=== PATIENT | female | born 2005 | race African-American/Black ===

== ENCOUNTER 2024-04-24 13:52 | Emergency (ER) | payer OTHER ==
[~2024-04-24] VITALS: Ht 152.4 cm; Wt 72.7 kg
[2024-04-24 13:53] VITALS: BP 122/78; TEMP 97; O2SAT 100
[2024-04-24] MEDS ORDERED: CLIN1GEL3 TOP (14:38)
== END 2024-04-24 14:52 | disposition home or self-care (01) ==
LOC: M ED 13:52
DX: L70.9 Acne, unspecified (principal); Z79.2 Long term (current) use of antibiotics

== ENCOUNTER → 2024-08-04 | Outpatient (CLI) | payer OTHER ==
[~2024-08-04] MED LIST: CLIN1GEL3 TOP
== END ==
LOC: M WHC 06:49
PROVIDERS: ATTEND Physician Assistant
DX: N64.4 Mastodynia (principal)

== ENCOUNTER 2024-10-19 10:46 | Emergency (ER) | payer OTHER ==
[~2024-10-19] VITALS: Ht 157.5 cm; Wt 86.0 kg
[2024-10-19] MEDS ORDERED: PRENMIS3 PO (10:57)
[2024-10-19 12:01] LABS: BASO % 0.4 % (0.0-1.0); EOS # 0.1 10^3/uL (0.0-0.5); EOS % 0.6 % (0.0-3.0); HEMATOCRIT 38.6 % (36.0-47.0); HEMOGLOBIN 12.7 g/dl (12.0-15.5); LYMPH % 25.6 % (24.0-44.0); MEAN CORPUSCULAR HEMOGLOBIN 29.7 pg (27.0-33.0); MEAN CORPUSCULAR HGB CONC 32.9 g/dl (32.0-36.5); MEAN CORPUSCULAR VOLUME 90.2 fl (80.0-96.0); MONO # 0.5 10^3/uL (0.0-0.8); NEUTROPHILS # 5.2 10^3/uL (1.5-8.5); NEUTROPHILS % 66.4 % (36.0-66.0); PLATELET COUNT, AUTOMATED 310 10^3/uL (150-450); RED BLOOD COUNT 4.28 10^6/uL (4.00-5.40); WHITE BLOOD COUNT 7.9 10^3/uL (4.0-10.0)
[2024-10-19 12:23] LABS: ALBUMIN 3.5 G/DL (3.2-5.2); ALKALINE PHOSPHATASE 70 U/L (35-104); ALT/SGPT 13 U/L (7.0-40); AST/SGOT 9 U/L (<34); BILIRUBIN,DIRECT 0.1 MG/DL (<0.4); BILIRUBIN,TOTAL 0.5 MG/DL (0.3-1.2); BLOOD UREA NITROGEN 10 MG/DL (9-23); CALCIUM LEVEL 9.3 MG/DL (8.5-10.1); CARBON DIOXIDE LEVEL 26 MMOL/L (20-31); CHLORIDE LEVEL 106 MMOL/L (98-107); CREATININE FOR GFR 0.61 MG/DL (0.55-1.30); GLOMERULAR FILTRATION RATE > 60.0 (>60); GLUCOSE, FASTING 111 MG/DL (60-100); SODIUM LEVEL 137 MMOL/L (136-145)
[2024-10-19 12:41] LABS: HCG, SERUM QUANTITATIVE 53959.7 MIU/ML (<4.2)
[2024-10-19] MEDS: ONDANSETRON 4MG ORAL DISINTEGRATING TAB PO ONE (13:40)
[2024-10-19] MEDS ORDERED: ONDA-282 PO (15:07)
[2024-10-19 15:32] VITALS: BP 126/63; TEMP 98.3; O2SAT 99
== END 2024-10-19 15:31 | disposition home or self-care (01) ==
LOC: M ED 10:46
DX: O21.9 Vomiting of pregnancy, unspecified (principal); O26.891 Other specified pregnancy related conditions, first trimester; Z3A.01 Less than 8 weeks gestation of pregnancy; Z79.810 Long term (current) use of selective estrogen receptor modulators (SERMs); Z79.899 Other long term (current) drug therapy

== ENCOUNTER 2024-12-27 11:05 | Outpatient (CLI) | payer OTHER ==
[~2024-12-27] VITALS: Ht 157.5 cm; Wt 92.9 kg
[2024-12-27] VITALS (7 sets, daily range): BP systolic 120–154; BP diastolic 60–119
[~2024-12-27 11:05] MED LIST changes: +ONDA-282 PO; +PRENMIS3 PO
[2024-12-27] MEDS ORDERED: ASPI81CH33 PO (11:32)
[2024-12-27] MEDS ORDERED: HOME MED LIST COMPLETE! XX SCH (11:35)
[2024-12-27 12:28] LABS: HEMATOCRIT 34.8 % (36.0-47.0); HEMOGLOBIN 11.3 g/dl (12.0-15.5); MEAN CORPUSCULAR HEMOGLOBIN 29.5 pg (27.0-33.0); MEAN CORPUSCULAR HGB CONC 32.5 g/dl (32.0-36.5); MEAN CORPUSCULAR VOLUME 90.9 fl (80.0-96.0); PLATELET COUNT, AUTOMATED 295 10^3/uL (150-450); RED BLOOD COUNT 3.83 10^6/uL (4.00-5.40); WHITE BLOOD COUNT 9.2 10^3/uL (4.0-10.0)
[2024-12-27 12:47] LABS: APPEARANCE, URINE CLEAR (CLEAR); BACTERIA, URINE AUTO NEGATIVE (NEGATIVE); BILIRUBIN, URINE AUTO NEGATIVE (NEGATIVE); BLOOD, URINE BLOOD NEGATIVE (NEGATIVE); COLOR, URINE YELLOW (YELLOW); GLUCOSE, URINE (UA) AUTO NEGATIVE (NEGATIVE); KETONE, URINE AUTO NEGATIVE (NEGATIVE); LEUKOCYTE ESTERASE, URINE AUTO NEGATIVE (NEGATIVE); MUCUS, URINE SMALL (NEGATIVE); NITRITE, URINE AUTO NEGATIVE (NEGATIVE); PROTEIN, URINE AUTO NEGATIVE (NEGATIVE); RBC, URINE AUTO 0 /HPF (0-3); SPECIFIC GRAVITY URINE AUTO 1.016 (1.002-1.035); SQUAMOUS EPITHELIAL CELL UR AU 1 /HPF (0-6); UROBILINOGEN, URINE AUTO 0.2 mg/dL (0.0-2.0); WBC, URINE AUTO 0 /HPF (0-3)
[2024-12-27 12:51] LABS: TOTAL PROTEIN,RANDOM URINE 7.4 MG/DL (0.0-14.0)
[2024-12-27 12:55] LABS: CREATININE,RANDOM URINE 76.9 MG/DL
[2024-12-27 12:56] LABS: LDH LACTATE DEHYDROGENASE 190 U/L (120-246)
[2024-12-27 12:57] LABS: ALT/SGPT 31 U/L (7.0-40); AST/SGOT 22 U/L (<34); BILIRUBIN,TOTAL 0.3 MG/DL (0.3-1.2); CREATININE FOR GFR 0.55 MG/DL (0.55-1.30); GLOMERULAR FILTRATION RATE > 60.0 (>60)
[2024-12-27 13:06] LABS: URIC ACID 2.7 MG/DL (3.1-7.8)
[2024-12-27] MEDS ORDERED: LABE100T6 PO (13:17)
== END 2024-12-27 13:25 | disposition home or self-care (01) ==
LOC: M LDO 11:05
PROVIDERS: ATTEND Advanced Practice Midwife
DX: O26.892 Other specified pregnancy related conditions, second trimester (principal); R10.2 Pelvic and perineal pain; R03.0 Elevated blood-pressure reading, without diagnosis of hypertension; Z3A.16 16 weeks gestation of pregnancy
CPT/HCPCS: 36415; 81001; 82247; 82570; 83615; 84156; 84450; 84460; 84550; 85027; 87086; G0463

== ENCOUNTER 2025-02-08 23:45 | Outpatient (CLI) | payer OTHER ==
[~2025-02-08] VITALS: Ht 157.5 cm; Wt 94.4 kg
[~2025-02-08 23:45] MED LIST changes: +ASPI81CH33 PO; +LABE100T6 PO
[2025-02-09 00:09] VITALS: BP 129/58
[2025-02-09] MEDS ORDERED: FLON1SPR NARES (06:07)
== END 2025-02-09 00:20 | disposition home or self-care (01) ==
LOC: M LDO 23:45
PROVIDERS: ATTEND Obstetrics & Gynecology
DX: O26.892 Other specified pregnancy related conditions, second trimester (principal); R07.9 Chest pain, unspecified; R09.81 Nasal congestion; Z3A.20 20 weeks gestation of pregnancy

== ENCOUNTER 2025-02-09 00:28 | Emergency (ER) | payer OTHER ==
[~2025-02-09] VITALS: Ht 157.5 cm; Wt 94.2 kg
[2025-02-09 01:05] LABS: BASO % 0.3 % (0.0-1.0); EOS # 0.1 10^3/uL (0.0-0.5); EOS % 1.1 % (0.0-3.0); HEMATOCRIT 32.8 % (36.0-47.0); HEMOGLOBIN 10.9 g/dl (12.0-15.5); LYMPH # 2.3 10^3/uL (1.5-5.0); LYMPH % 17.9 % (24.0-44.0); MEAN CORPUSCULAR HEMOGLOBIN 29.9 pg (27.0-33.0); MEAN CORPUSCULAR HGB CONC 33.2 g/dl (32.0-36.5); MEAN CORPUSCULAR VOLUME 90.1 fl (80.0-96.0); MONO # 0.8 10^3/uL (0.0-0.8); MONO % 6.1 % (2.0-8.0); NEUTROPHILS # 9.2 10^3/uL (1.5-8.5); NEUTROPHILS % 70.5 % (36.0-66.0); PLATELET COUNT, AUTOMATED 303 10^3/uL (150-450); RED BLOOD COUNT 3.64 10^6/uL (4.00-5.40); WHITE BLOOD COUNT 13.1 10^3/uL (4.0-10.0)
[2025-02-09 01:26] LABS: CK-MB VALUE MASS < 1.0 NG/ML (<3.6)
[2025-02-09 01:27] LABS: CPK CREATINE PHOSPHOKINASE 83 U/L (34-145)
[2025-02-09 01:28] LABS: BLOOD UREA NITROGEN < 5 MG/DL (9-23); CALCIUM LEVEL 8.9 MG/DL (8.5-10.1); CARBON DIOXIDE LEVEL 21 MMOL/L (20-31); CHLORIDE LEVEL 105 MMOL/L (98-107); CREATININE FOR GFR 0.52 MG/DL (0.55-1.30); GLOMERULAR FILTRATION RATE > 60.0 (>60); GLUCOSE, FASTING 86 MG/DL (60-100); POTASSIUM SERUM 4.1 MMOL/L (3.5-5.1); SODIUM LEVEL 137 MMOL/L (136-145)
[2025-02-09 06:00] VITALS: BP 113/61; TEMP 98.4; O2SAT 100
[2025-02-09] MEDS ORDERED: FLON1SPR NARES (06:07)
== END 2025-02-09 06:25 | disposition home or self-care (01) ==
LOC: M ED 00:28
DX: R09.81 Nasal congestion (principal); B34.2 Coronavirus infection, unspecified; R00.0 Tachycardia, unspecified; I10 Essential (primary) hypertension; Z79.1 Long term (current) use of non-steroidal anti-inflammatories (NSAID); Z79.810 Long term (current) use of selective estrogen receptor modulators (SERMs); Z79.899 Other long term (current) drug therapy

== ENCOUNTER 2025-02-21 18:57 | Emergency (ER) | payer OTHER ==
[~2025-02-21] VITALS: Ht 157.5 cm; Wt 96.3 kg
[~2025-02-21 18:57] MED LIST changes: +FLON1SPR NARES
[2025-02-21 21:12] VITALS: BP 128/78; TEMP 98; O2SAT 100
== END 2025-02-21 23:15 | disposition left against medical advice (07) ==
LOC: M ED 18:57
DX: Z53.21 Procedure and treatment not carried out due to patient leaving prior to being seen by health care provider (principal)

== ENCOUNTER 2025-02-22 14:10 | Emergency (ER) | payer OTHER ==
[~2025-02-22] VITALS: Ht 157.5 cm; Wt 95.5 kg
[2025-02-22 16:38] VITALS: BP 142/82; TEMP 97.5; O2SAT 100
[2025-02-22] MEDS: DERMABOND TOPICAL SKIN ADHESIVE TOP ONE (18:35)
== END 2025-02-22 19:12 | disposition home or self-care (01) ==
LOC: M ED 14:10
DX: S61.102A Unspecified open wound of left thumb with damage to nail, initial encounter (principal); Y92.9 Unspecified place or not applicable; Y93.9 Activity, unspecified; Y99.9 Unspecified external cause status; W23.0XXA Caught, crushed, jammed, or pinched between moving objects, initial encounter; Z79.1 Long term (current) use of non-steroidal anti-inflammatories (NSAID)

== ENCOUNTER → 2025-03-15 | Outpatient (CLI) | payer OTHER ==
[~2025-03-15] VITALS: Ht 157.5 cm; Wt 97.6 kg
[~2025-03-15] MED LIST changes: +HOME MED LIST COMPLETE! XX SCH; +NOXI1TAB PO; +PREN1TAB11 PO
[2025-03-15 18:08] VITALS: BP 124/60; O2SAT 99
[2025-03-15] MEDS: ACETAMINOPHEN 500 MG TAB PO ONE (18:42)
[2025-03-15 18:44] VITALS: BP 133/72
[2025-03-15 19:30] VITALS: BP 131/64
[2025-03-15] MEDS: diphenhydrAMINE 50MG CAP PO ONE (19:58)
[2025-03-15] MEDS: METOCLOPRAMIDE 10MG TAB PO ONE (19:58)
[2025-03-15 20:15] LABS: HEMATOCRIT 33.1 % (36.0-47.0); HEMOGLOBIN 10.6 g/dl (12.0-15.5); MEAN CORPUSCULAR HEMOGLOBIN 29.4 pg (27.0-33.0); MEAN CORPUSCULAR VOLUME 91.9 fl (80.0-96.0); PLATELET COUNT, AUTOMATED 318 10^3/uL (150-450)
[2025-03-15 20:39] LABS: LIPASE 60 U/L (12-53)
[2025-03-15 20:40] LABS: AMYLASE 114 U/L (30-118)
[2025-03-15 20:41] LABS: ALBUMIN 2.8 G/DL (3.2-5.2); ALKALINE PHOSPHATASE 155 U/L (35-104); ALT/SGPT 18 U/L (7.0-40); AST/SGOT 14 U/L (<34); BILIRUBIN,TOTAL 0.4 MG/DL (0.3-1.2); BLOOD UREA NITROGEN 7 MG/DL (9-23); CALCIUM LEVEL 9.2 MG/DL (8.5-10.1); CARBON DIOXIDE LEVEL 20 MMOL/L (20-31); CHLORIDE LEVEL 105 MMOL/L (98-107); CREATININE FOR GFR 0.49 MG/DL (0.55-1.30); GLOMERULAR FILTRATION RATE > 90.0 (>60); GLUCOSE, FASTING 114 MG/DL (60-100); POTASSIUM SERUM 3.9 MMOL/L (3.5-5.1); SODIUM LEVEL 135 MMOL/L (136-145); TOTAL PROTEIN 6.7 G/DL (5.7-8.2)
== END ==
LOC: M LDO 17:38
PROVIDERS: ATTEND Advanced Practice Midwife
DX: O26.892 Other specified pregnancy related conditions, second trimester (principal); R51.9 Headache, unspecified; R10.12 Left upper quadrant pain; Z3A.27 27 weeks gestation of pregnancy
CPT/HCPCS: 36415; 59025; 80053; 82150; 83690; 85027; G0463

== ENCOUNTER 2025-03-29 14:43 | Outpatient (CLI) | payer OTHER ==
[~2025-03-29] VITALS: Ht 157.5 cm; Wt 98.0 kg
[~2025-03-29 14:43] MED LIST changes: -HOME MED LIST COMPLETE! XX SCH
[2025-03-29 15:00] VITALS: BP 126/73
[2025-03-29] MEDS ORDERED: IRON65TA2 PO (15:04)
[2025-03-29] MEDS ORDERED: HOME MED LIST COMPLETE! XX SCH (15:05)
== END 2025-03-29 15:52 | disposition home or self-care (01) ==
LOC: M LDO 14:43
PROVIDERS: ATTEND Specialist
DX: O36.8130 Decreased fetal movements, third trimester, not applicable or unspecified (principal); O99.013 Anemia complicating pregnancy, third trimester; D50.9 Iron deficiency anemia, unspecified; Z3A.29 29 weeks gestation of pregnancy
CPT/HCPCS: 59025; G0463

== ENCOUNTER → 2025-04-06 | Outpatient (REF) | payer OTHER ==
[~2025-04-06] MED LIST changes: +IRON65TA2 PO
[2025-04-06 12:10] LABS: TOTAL PROTEIN,RANDOM URINE 10.8 MG/DL (0.0-14.0)
[2025-04-06 12:15] LABS: CREATININE,RANDOM URINE 70.9 MG/DL
[2025-04-06 13:16] LABS: Trichomonas vaginalis (AMP) NOT DETECTED (NEGATIVE)
[2025-04-06 13:40] LABS: GC DNA AMPLIFICATION NEGATIVE (NEGATIVE)
== END ==
LOC: M SFHCWAGY 10:19
PROVIDERS: ATTEND Obstetrics & Gynecology
DX: O10.919 Unspecified pre-existing hypertension complicating pregnancy, unspecified trimester (principal)

== ENCOUNTER 2025-04-10 07:56 | Outpatient (CLI) | payer OTHER ==
[~2025-04-10] VITALS: Ht 157.5 cm; Wt 99.6 kg
[2025-04-10] MEDS ORDERED: HOME MED LIST COMPLETE! XX SCH (08:20)
[2025-04-10 08:21] VITALS: BP 131/77
[2025-04-10] MEDS: LR 500 ML IV ONE (08:51)
[2025-04-10 09:31] LABS: HEMATOCRIT 33.8 % (36.0-47.0); HEMOGLOBIN 10.9 g/dl (12.0-15.5); MEAN CORPUSCULAR HEMOGLOBIN 29.3 pg (27.0-33.0); MEAN CORPUSCULAR HGB CONC 32.2 g/dl (32.0-36.5); MEAN CORPUSCULAR VOLUME 90.9 fl (80.0-96.0); PLATELET COUNT, AUTOMATED 315 10^3/uL (150-450); RED BLOOD COUNT 3.72 10^6/uL (4.00-5.40); WHITE BLOOD COUNT 11.9 10^3/uL (4.0-10.0)
[2025-04-10 09:35] LABS: KETONE, URINE AUTO RFX TRACE mg/dL (NEGATIVE); LEUKOCYTE ESTERASE UR AUTO RFX NEGATIVE (NEGATIVE); MUCUS, URINE RFX SMALL (NEGATIVE); NITRITE, URINE AUTO RFX NEGATIVE (NEGATIVE); RBC, URINE AUTO RFX 1 /HPF (0-3); SQUAM EPITHELIAL CELL UR AURFX 3 /HPF (0-6); WBC, URINE AUTO RFX 9 /HPF (0-3)
[2025-04-10 10:03] LABS: ATYPICAL LYMPH 3 % (0-5); LYMPHOCYTES 18 % (16-44); METAMYELOCYTES 1 % (0-0); MONOCYTES 6 % (0-5); MYELOCYTES 2 % (0-0); NEUTROPHILS 67 % (28-66)
[2025-04-10 10:04] LABS: ANISOCYTOSIS 1+; PLATELET CLUMPS SMALL AMT; PLATELET ESTIMATE NORMAL (NORMAL); TEAR DROP CELLS 2+
[2025-04-10 10:05] LABS: POLYCHROMASIA 1+
[2025-04-10 10:58] LABS: ALBUMIN 2.6 G/DL (3.2-5.2); ALKALINE PHOSPHATASE 197 U/L (35-104); ALT/SGPT 17 U/L (7.0-40); AST/SGOT 13 U/L (<34); BILIRUBIN,TOTAL 0.4 MG/DL (0.3-1.2); BLOOD UREA NITROGEN 5 MG/DL (9-23); CALCIUM LEVEL 8.7 MG/DL (8.5-10.1); CARBON DIOXIDE LEVEL 22 MMOL/L (20-31); CHLORIDE LEVEL 106 MMOL/L (98-107); CREATININE FOR GFR 0.51 MG/DL (0.55-1.30); GLOMERULAR FILTRATION RATE > 90.0 (>60); GLUCOSE, FASTING 111 MG/DL (60-100); POTASSIUM SERUM 4.1 MMOL/L (3.5-5.1); SODIUM LEVEL 138 MMOL/L (136-145); TOTAL PROTEIN 6.2 G/DL (5.7-8.2)
[2025-04-10 11:27] VITALS: BP 139/69
== END 2025-04-10 12:04 | disposition home or self-care (01) ==
LOC: M LDO 07:56
PROVIDERS: ATTEND Obstetrics & Gynecology
DX: O26.893 Other specified pregnancy related conditions, third trimester (principal); N89.8 Other specified noninflammatory disorders of vagina; Z3A.31 31 weeks gestation of pregnancy; Z79.82 Long term (current) use of aspirin
CPT/HCPCS: 36415; 59025; 76815; 76817; 76819; 76820; 80053; 81001; 85025; G0463

== ENCOUNTER → 2025-04-14 | Outpatient (CLI) | payer OTHER ==
[2025-04-14 16:09] LABS: HEMATOCRIT 33.8 % (36.0-47.0); HEMOGLOBIN 10.6 g/dl (12.0-15.5); MEAN CORPUSCULAR HEMOGLOBIN 29.6 pg (27.0-33.0); MEAN CORPUSCULAR HGB CONC 31.4 g/dl (32.0-36.5); MEAN CORPUSCULAR VOLUME 94.4 fl (80.0-96.0); PLATELET COUNT, AUTOMATED 318 10^3/uL (150-450); RED BLOOD COUNT 3.58 10^6/uL (4.00-5.40); WHITE BLOOD COUNT 10.2 10^3/uL (4.0-10.0)
[2025-04-14 16:29] LABS: URIC ACID 2.5 MG/DL (3.1-7.8)
[2025-04-14 16:31] LABS: LDH LACTATE DEHYDROGENASE 173 U/L (120-246)
[2025-04-14 16:32] LABS: ALT/SGPT 17 U/L (7.0-40); AST/SGOT 10 U/L (<34); BILIRUBIN,TOTAL 0.4 MG/DL (0.3-1.2); CREATININE FOR GFR 0.66 MG/DL (0.55-1.30); GLOMERULAR FILTRATION RATE > 90.0 (>60)
[2025-04-14 16:57] LABS: HIV 1&2 SCREEN NEGATIVE (NEGATIVE)
== END ==
LOC: M PLALAB 12:43
PROVIDERS: ATTEND Obstetrics & Gynecology
DX: Z34.03 Encounter for supervision of normal first pregnancy, third trimester (principal)

== ENCOUNTER 2025-06-04 13:28 | Emergency (ER) | payer OTHER ==
[~2025-06-04] VITALS: Ht 157.5 cm; Wt 107.7 kg
[~2025-06-04 13:28] MED LIST changes: +ACET-907 PO; +COLA100C5 PO; +IBUP80TA PO; +OXYC1TAB23 PO
[2025-06-04 13:45] VITALS: TEMP 98.2
[2025-06-04] MEDS ORDERED: ISOVUE-370 76% 100 ML VIAL As Ordered ONE (14:12)
[2025-06-04 14:15] LABS: BASO # 0.0 10^3/uL (0.0-0.2); BASO % 0.2 % (0.0-1.0); EOS # 0.3 10^3/uL (0.0-0.5); EOS % 3.0 % (0.0-3.0); LYMPH # 1.5 10^3/uL (1.5-5.0); LYMPH % 16.5 % (24.0-44.0); MONO # 0.5 10^3/uL (0.0-0.8); MONO % 5.8 % (2.0-8.0); NEUTROPHILS # 6.5 10^3/uL (1.5-8.5); NEUTROPHILS % 70.5 % (36.0-66.0); PLATELET COUNT, AUTOMATED 326 10^3/uL (150-450)
[2025-06-04 14:37] LABS: CPK CREATINE PHOSPHOKINASE 156 U/L (34-145)
[2025-06-04 14:38] LABS: ALT/SGPT 33 U/L (7.0-40); AST/SGOT 44 U/L (<34); CALCIUM LEVEL 8.8 MG/DL (8.5-10.1); CARBON DIOXIDE LEVEL 22 MMOL/L (20-31); CHLORIDE LEVEL 109 MMOL/L (98-107); CK-MB VALUE MASS 2.6 NG/ML (<3.6); CREATININE FOR GFR 0.76 MG/DL (0.55-1.30); GLOMERULAR FILTRATION RATE > 90.0 (>60); MB/CK RELATIVE INDEX 1.66 (< OR =4); POTASSIUM SERUM 4.4 MMOL/L (3.5-5.1); SODIUM LEVEL 142 MMOL/L (136-145)
[2025-06-04 14:42] LABS: INR 0.84
[2025-06-04 16:10] LABS: CK-MB VALUE MASS 2.4 NG/ML (<3.6)
[2025-06-04 16:11] LABS: CPK CREATINE PHOSPHOKINASE 151.0 U/L (34-145); MB/CK RELATIVE INDEX 1.58 (< OR =4)
[2025-06-04 16:27] VITALS: BP 144/94
[2025-06-04] MEDS: FUROSEMIDE 40 MG/4 ML VIAL IV ONE (16:27)
[2025-06-04] MEDS: ACETAMINOPHEN 325 MG TAB PO ONE (17:36)
[2025-06-04] MEDS ORDERED: FURO20TA2 PO (19:41)
[2025-06-04 19:45] VITALS: O2SAT 99
[2025-06-04 19:47] VITALS: BP 153/82
== END 2025-06-04 20:27 | disposition home or self-care (01) ==
LOC: M ED 13:28
DX: I10 Essential (primary) hypertension (principal); J91.8 Pleural effusion in other conditions classified elsewhere; E87.70 Fluid overload, unspecified; I27.20 Pulmonary hypertension, unspecified; F41.9 Anxiety disorder, unspecified; F32.A Depression, unspecified; Z79.1 Long term (current) use of non-steroidal anti-inflammatories (NSAID); Z79.899 Other long term (current) drug therapy; Z79.810 Long term (current) use of selective estrogen receptor modulators (SERMs)
CPT/HCPCS: 71045; 71275; 74177; 80047; 80048; 80076; 82550; 82553; 83605; 83880; 84145; 84443; 84484; 85025; 85610; 87040; 87077; 87154; 87186; 87486; 87581; 87633; 87798; 93005; 93041; 93306; 94760; 96374; 99285; J1938; Q9967